=== PATIENT | female | born 1960 | race Caucasian/White ===

== ENCOUNTER → 2017-04-20 | Outpatient (REF) ==
[~2017-04-20] MED LIST: ASPI-757 PO; CEPH500T7 PO; CHOL100062 PO; METO-253 PO; METO-257 PO; METO25TA93 PO; METO50TA19 PO; PER; PROBIOTIC1 EACH PO
[2017-04-20 08:50] LABS: LDL CHOLESTEROL 99 mg/dl
== END ==
DX: Z02.9 Encounter for administrative examinations, unspecified (principal)

== ENCOUNTER → 2017-08-06 | Outpatient (CLI) | payer OTHER ==
[~2017-08-06] MED LIST changes: +BACI1TAB3; +HYDR12.561 PO; +RIZA10TA PO; +TOPI-119 PO
--- NOTE | 2017-08-06 11:50 | RADIOLOGY IMAGING REPORT ---
FACILITY: [facility] - [place] PATIENT NAME: Jessie Wallace : 1960 MR: [id number] V: [id number] EXAM DATE: ORDERING PHYSICIAN: LENNY MOORE TECHNOLOGIST: Location: [facility] - [place] Patient: Jessie Wallace : 1960 Visit/Account:[id number] Date of Sevice: 08/06/2017 3 views left ankle Indication: Postop ORIF. Comparison: X-ray examination the ankle from May 21, 2016 Findings: Compared to prior examination, stable operative change in alignment status post ORIF for medial and l ateral malleoli fractures. The lateral fibular plate, fixation screws in the two screws traversing t he medial malleolus are unchanged. Alignment stable. No new fracture. Talar dome is unremarkable. No radiographic evidence of loosening. Fracture lucencies are not identified. IMPRESSION: 1. Stable postoperative change status post ORIF left ankle. Fractures appear healed. No complicati on or acute finding. Report Dictated By: Maxwell Singh MD at 08/06/2017 11:45 AM Report E-Signed By: Maxwell Singh MD at 08/06/2017 11:47 AM WSN:[email or web address]
== END ==
LOC: RAD 10:56
PROVIDERS: ATTEND Orthopaedic Surgery
DX: Z98.890 Other specified postprocedural states (principal)

== ENCOUNTER → 2017-08-16 | Outpatient (CLI) | payer OTHER | LOC: LAB 07:21 | PROVIDERS: ATTEND Anesthesiology | DX: Z01.812 Encounter for preprocedural laboratory examination (principal); Z96.89 Presence of other specified functional implants | CPT/HCPCS: 36415; 82040; 82247; 82310; 82374; 82435; 82565; 82947; 84075; 84132; 84155; 84295; 84450; 84460; 84520 ==

== ENCOUNTER 2018-01-30 09:46 | Emergency (ER) | payer OTHER ==
[~2018-01-30 09:46] MED LIST changes: +FLU60VIA41 IM
[2018-01-30] MEDS ORDERED: APIX5TAB PO (10:05)
[2018-01-30] MEDS ORDERED: ONDANSETRON 4 MG ODT TABDP SL ONE (10:15)
[2018-01-30] MEDS ORDERED: APAP/HYDROCODONE 325/5 TAB PO ONE (10:15)
--- NOTE | 2018-01-30 10:56 | ER Report ---
History and Physical Time Seen By MD: 10:57 Hx. of Stated Complaint: PT FELL ON L WRIST HPI/ROS Was shoveling snow slipped on some ice and fell onto her left wrist and left hip. Able to ambulate. Did not strike her head and no loss of consciousness. She does take Eliquis for paroxysmal atrial fibrillation. The pain in her left hip has improved, but she continues to have pain in her left wrist. No other complaints or injuries. Remainder of the 14 system rev: Yes Allergies: Coded Allergies: cat dander (Verified Allergy, Severe, hives, 03/13/16) peanut (Verified Allergy, Unknown, 11/07/06) erythromycin base (Verified Adverse Reaction, Intermediate, NAUSEA/VOMITING, 11/07/06) Uncoded Allergies: HAYFEVER (Allergy, Unknown, UNKNOWN, 08/08/11) KAY (Allergy, Unknown, 08/14/11) Home Meds Active Scripts Hydrocodone Bit/Acetaminophen (HYDROCODON-ACETAMINOPHEN 5-325) 1 Each Tablet, 1 EACH PO Q4H PRN for PAIN, #12 TAB 0 Refills Prov:DELFINO SIDDIQUI MD 01/30/18 Hydrochlorothiazide (HYDROCHLOROTHIAZIDE) 12.5 Mg Tablet, 1 TAB PO QDAY, #90 TAB 4 Refills Prov:ANISHA MAX DO 12/30/17 Metoprolol Tartrate (METOPROLOL TARTRATE) 25 Mg Tablet, 25 MG PO BID for 90 Days, #90 TAB 4 Refills Prov:ANISHA MAX DO 09/10/17 Reported Medications Apixaban (ELIQUIS) 5 Mg Tablet, 5 MG PO BID 01/30/18 Bacillus Coagulans (Probiotic) 250 Million Cell Tab.chew 07/15/17 Reviewed Nurses Notes: Yes Old Medical Records Reviewed: Yes Hx Smoking: No Smoking Status: Never Smoker Hx Substance Use Disorder: No Hx Alcohol Use: Yes Constitutional Vital Sign - Last 24 Hours 01/30/18 01/30/18 01/30/18 01/30/18 09:58 10:00 10:15 10:30 Temp 97.8 Pulse 68 70 67 65 Resp 16 B/P (MAP) 123/86 Pulse Ox 94 97 96 95 O2 Delivery Room Air 01/30/18 01/30/18 01/30/18 01/30/18 10:45 10:59 11:00 11:30 Pulse 65 B/P (MAP) 109/74 (86) 104/71 (82) 116/80 (92) Pulse Ox 95 Physical Exam General Appearance: The patient is alert, has no immediate need for airway protection and no current signs of toxicity. Eyes: Pupils equal and round no injection. Respiratory: Chest is non tender, lungs are clear to auscultation. Cardiac: regular rate and rhythm Gastrointestinal: Abdomen is soft and non tender, no masses, bowel sounds normal. Musculoskeletal: TTP of the left wrist with mild swelling. N/V in tact Neck: Neck is supple and non tender. Skin: No rashes or lesions. DIFFERENTIAL DIAGNOSIS: After history and physical exam differential diagnosis was considered for fractures, intra-abdominal trauma/bleeding, ICH Medical Decision Making ED Course/Re-evaluation ED Course left distal radius fracture. no ICH. normal neuro exam. splint placed on left wrist. n/v in tact before and after splint placement. Decision to Disposition Date: Jan 30, 2018 Decision to Disposition Time: 13:48 Depart Departure Latest Vital Signs Vital Signs Date Time Temp Pulse Resp B/P (MAP) Pulse Ox O2 Delivery O2 Flow Rate FiO2 01/30/18 11:30 116/80 (92) 01/30/18 10:45 65 95 01/30/18 09:58 97.8 16 Room Air Impression: Primary Impression: Fracture, radius, distal Condition: Improved Disposition: HOME OR SELF-CARE Referrals: ANISHA MAX DO (PCP) PORSCHE MCGREGOR MD New Scripts Hydrocodone Bit/Acetaminophen (HYDROCODON-ACETAMINOPHEN 5-325) 1 Each Tablet 1 EACH PO Q4H PRN for PAIN, #12 TAB 0 Refills Prov: DELFINO SIDDIQUI MD 01/30/18 Patient Instructions: Wrist Fracture in Adults (ED) Problem Qualifiers Primary Impression: Fracture, radius, distal Encounter type: initial encounter Fracture type: closed Fracture morphology: other fracture Laterality: left Qualified Codes: S52.592A - Other fractures of lower end of left radius, initial encounter for closed fracture DELFINO SIDDIQUI MD Jan 30, 2018 10:56
--- NOTE | 2018-01-30 11:09 | RADIOLOGY IMAGING REPORT ---
[place] [facility] [place] Jessie Wallace : 1960 MR: [id number] V: [id number] EXAM DATE: ORDERING PHYSICIAN: DELFINO SIDDIQUI TECHNOLOGIST: Location: [facility] [place] Patient: Jessie Wallace : 1960 Visit/Account:[id number] Date of Sevice: 01/30/2018 Exam type: WRIST LEFT MIN 3 VIEW History: fall Comparison: None. Findings: There is a slightly comminuted transverse fracture through the distal metaphysis of the left radius w ith slight dorsal displacement of the dorsal fracture fragments. No significant angulation is identi fied. Incidentally noted are postsurgical changes with orthopedic screws within the left fifth metac arpal. Incidentally noted are moderate degenerative changes of the first carpometacarpal articulatio n, first metacarpophalangeal joint and IP joint of the left thumb IMPRESSION: 1. Slightly comminuted fracture to the distal metaphysis left radius with slight dorsal displacement and dorsal fracture fragments. No significant angulation is identified Report Dictated By: Olga Mayers MD at 01/30/2018 11:02 AM Report E-Signed By: Olga Mayers MD at 01/30/2018 11:04 AM WSN:[email or web address]
[2018-01-30 11:30] VITALS: BP 116/80
--- NOTE | 2018-01-30 12:20 | RADIOLOGY IMAGING REPORT ---
FACILITY: [facility] PATIENT NAME: Jessie Wallace : 1960 MR: [id number] V: [id number] EXAM DATE: ORDERING PHYSICIAN: DELFINO SIDDIQUI TECHNOLOGIST: Location: Patient: Jessie Wallace : 1960 Visit/Account:[id number] Date of Sevice: 01/30/2018 EXAMINATION: CT head without IV contrast HISTORY: Fall, on Eliquis. COMPARISON: None. TECHNIQUE: Contiguous axial images were obtained from the skull base to the vertex without intraven ous contrast. Sagittal and coronal reformatted images are also submitted. One of the following dose optimization techniques was utilized in the performance of this exam: Autom ated exposure control; adjustment of the mA and/or kV according to the patient's size; or use of an i terative reconstruction technique. Specific details can be referenced in the facility's radiology C T exam operational policy. FINDINGS: Brain volume: Normal. Ventricles: Normal. Acute ischemic changes: None. Hemorrhage: No acute intracranial hemorrhage. Masses/edema: None. Puga-white: Negative. White matter: Normal. Vessels: Negative. Extra-axial: Negative. Calvarium/scalp: No acute fracture. Small surgical screws in the bilateral frontal bones. Skull base/visualized face: Negative. Visualized sinuses/orbits: Negative. IMPRESSION: No acute fracture, hemorrhage or intracranial mass lesion. No CT evidence of acute infarct. Report Dictated By: Stephanie Santacruz MD at 01/30/2018 12:11 PM Report E-Signed By: Stephanie Santacruz MD at 01/30/2018 12:15 PM WSN:[id number]
[2018-01-30] MEDS ORDERED: LOR5/325 PO (13:49)
== END 2018-01-30 13:59 | disposition home or self-care (01) ==
LOC: ER 11:39
DX: S52.592A Other fractures of lower end of left radius, initial encounter for closed fracture (principal); Z79.01 Long term (current) use of anticoagulants; W00.0XXA Fall on same level due to ice and snow, initial encounter
CPT/HCPCS: 70450; 73110; 99284; S0119